=== PATIENT | male | born 1985 | race Caucasian/White ===

== ENCOUNTER 2016-10-31 21:19 | Emergency (ER) | payer OTHER ==
[2016-10-31] MEDS ORDERED: DOXYcycline CAP(*) 100 MG PO ONE (23:36)
[2016-10-31 23:59] VITALS: BP 124/69
--- NOTE | 2016-11-01 01:54 | ED ---
Skin Complaint - HPI Summary HPI Summary: Patient presents to ED with CC of tick head stuck in back. Tick has been present for up to 3 days he thinks. He denies any symptoms, pain, muscle aches or rash. He states he took the tick out today, but then the head stayed in and he was unable to dislodge it. He has never been dx with Lyme. - History of Current Complaint Chief Complaint: EDRashSkinAbscess Time Seen by Provider: 10/31/16 22:37 Stated Complaint: TICK BITE Hx Obtained From: Patient Onset/Duration: Started Days Ago Skin Exposure Onset/Duration: Hours Ago Timing: Constant Onset Severity: Mild Current Severity: Mild Pain Intensity: 0 Pain Scale Used: 0-10 Numeric Aggravating Symptom(s): Nothing Alleviating Symptom(s): Nothing Associated Signs & Symptoms: Negative Related History: Possible Reaction to: Insect - Allergy/Home Medications Allergies/Adverse Reactions: Allergies Allergy/AdvReac Type Severity Reaction Status Date / Time No Known Allergies Allergy Verified 07/07/13 13:29 PMH/Surg Hx/FS Hx/Imm Hx Previously Healthy: Yes - Immunization History Hx Pertussis Vaccination: No Immunizations Up to Date: No Infectious Disease History: No Infectious Disease History: Reports: Hx of Known/Suspected MRSA - abcess on face Denies: History Other Infectious Disease, Traveled Outside the [place] in Last 30 Days - Social History Occupation: Employed Full-time Lives: With Family Alcohol Use: Occasionally Hx Substance Use: No Substance Use Type: Reports: None Hx Tobacco Use: No Smoking Status (MU): Former Smoker Do You Chew or Dip Tobacco: No Have You Chewed or Dipped Tobacco in the LAST YEAR: No Review of Systems Constitutional: Negative Eyes: Negative Respiratory: Negative Gastrointestinal: Negative Genitourinary: Negative Musculoskeletal: Negative Positive: Other - small erythematous area over to the right of the back. Neurological: Negative Psychological: Normal All Other Systems Reviewed And Are Negative: Yes Physical Exam Triage Information Reviewed: Yes Vital Signs On Initial Exam: Initial Vitals Temp Pulse Resp BP Pulse Ox 98.4 F 85 18 156/73 99 10/31/16 21:35 10/31/16 21:35 10/31/16 21:35 10/31/16 21:35 10/31/16 21:35 Vital Signs Reviewed: Yes Appearance: Positive: Well-Appearing, Well-Nourished Skin: Positive: Warm, Skin Color Reflects Adequate Perfusion, Other - small erytehmatous area measuring .2 X .2 to the right side of the mid back without EM rash Head/Face: Positive: Normal Head/Face Inspection Eyes: Positive: SAADIA, Conjunctiva Clear Neck: Positive: Supple, Nontender Respiratory/Lung Sounds: Positive: Clear to Auscultation, Breath Sounds Present Cardiovascular: Positive: Normal Musculoskeletal: Positive: Normal, Strength/ROM Intact Neurological: Positive: Normal, Sensory/Motor Intact Psychiatric: Positive: Normal Diagnostics - Vital Signs Vital Signs Temp Pulse Resp BP Pulse Ox 10/31/16 23:55 98.8 F 74 18 124/69 10/31/16 23:00 97.8 F 89 18 128/89 96 10/31/16 21:35 98.4 F 85 18 156/73 99 - Laboratory Lab Statement: Any lab studies that have been ordered have been reviewed, and results considered in the medical decision making process. Course/Dx - Course Course Of Treatment: Used a 20 gauge needle to dislodge the head of tick in back. patient tolerated well. D/t unknown exposure, will send doxy to pharmacy of 200mg. (patient left - RN did not dispense rx doxy in ED) - Differential Diagnoses - Skin Complaint Differential Diagnoses: Allergic Reaction, Head Lice, Tick Born Illness - Diagnoses Provider Diagnoses: Tick bite Discharge - Discharge Plan Condition: Stable Disposition: HOME Patient Education Materials: Lyme Disease (ED), Tick Bite (ED) Referrals: Phil Vaz MD [Primary Care Provider] - Additional Instructions: Follow up with PCP. Images - Images Full Body (No Head): 1 - small lesion without EM
== END 2016-10-31 23:55 | disposition home or self-care (01) ==
LOC: ED 21:19
DX: S20.469A Insect bite (nonvenomous) of unspecified back wall of thorax, initial encounter (principal); W57.XXXA Bitten or stung by nonvenomous insect and other nonvenomous arthropods, initial encounter; Y93.9 Activity, unspecified; Y92.9 Unspecified place or not applicable; L53.8 Other specified erythematous conditions
CPT/HCPCS: 99282

== ENCOUNTER 2017-07-14 12:53 | Emergency (ER) | payer OTHER ==
[2017-07-14 13:05] VITALS: BP 163/80
--- NOTE | 2017-07-14 13:11 | UC ---
FLU HPI - HPI Summary HPI Summary: Sudden onset of fever chills body aches fatigue dizziness and cough began last night - History of Current Complaint Chief Complaint: UCGeneralIllness Stated Complaint: BODYACHES HEADACHE DIZZY Time Seen by Provider: 07/14/17 13:09 Hx Obtained From: Patient Onset/Duration: Sudden Onset, Lasting Days - 1, Still Present Severity Currently: Mild Severity Initially: Moderate Associated Signs & Symptoms: Positive: Fever, Myalgia, Sore Throat, Nasal Congestion, Headache - Allergy/Home Medications Allergies/Adverse Reactions: Allergies Allergy/AdvReac Type Severity Reaction Status Date / Time No Known Allergies Allergy Verified 07/14/17 13:05 PMH/Surg Hx/FS Hx/Imm Hx Previously Healthy: No GI/ History: Gastroesophageal Reflux - Surgical History Surgical History: None - Family History Known Family History: Positive: None - Social History Occupation: Employed Full-time Lives: With Family Alcohol Use: Occasionally Substance Use Type: None Smoking Status (MU): Former Smoker Review of Systems Constitutional: Chills, Fatigue Skin: Negative Eyes: Negative ENT: Sore Throat, Ear Ache, Nasal Discharge, Sinus Congestion Respiratory: Cough Cardiovascular: Negative Gastrointestinal: Negative Genitourinary: Negative Motor: Negative Neurovascular: Negative Musculoskeletal: Arthralgia, Myalgia Neurological: Headache Psychological: Negative Is Patient Immunocompromised?: No All Other Systems Reviewed And Are Negative: Yes Physical Exam Triage Information Reviewed: Yes Appearance: Well-Nourished, Ill-Appearing, Pain Distress Vital Signs: Initial Vital Signs Temp 98.8 F 07/14/17 12:59 Pulse 109 07/14/17 12:59 Resp 16 07/14/17 12:59 BP 163/80 07/14/17 12:59 Pulse Ox 98 07/14/17 12:59 Vital Signs Reviewed: Yes Eye Exam: Normal Eyes: Positive: Conjunctiva Clear ENT Exam: Normal ENT: Positive: Normal ENT inspection, Hearing grossly normal, Pharynx normal, TMs normal, Uvula midline. Negative: Nasal congestion, Nasal drainage, Tonsillar swelling, Tonsillar exudate, Trismus, Muffled voice, Hoarse voice, Dental tenderness Dental Exam: Normal Neck exam: Normal Neck: Positive: Supple, Nontender, No Lymphadenopathy Respiratory Exam: Normal Respiratory: Positive: Chest non-tender, Lungs clear, Normal breath sounds, No respiratory distress, No accessory muscle use Cardiovascular Exam: Normal Cardiovascular: Positive: RRR, No Murmur, Pulses Normal, Brisk Capillary Refill Musculoskeletal Exam: Normal Musculoskeletal: Positive: Strength Intact, ROM Intact, No Edema Neurological Exam: Normal Neurological: Positive: Alert, Muscle Tone Normal Psychological Exam: Normal Skin Exam: Normal Diagnostics - Laboratory Diagnostic Studies Completed/Ordered: Influenza B (+) Flu Course/Dx - Course Course Of Treatment: Tamiflu, increase fluids, follow with pcp, tylenol, ibuprofen - Differential Dx/Diagnosis Provider Diagnoses: Influenza B Discharge - Discharge Plan Condition: Stable Disposition: HOME Prescriptions: Oseltamivir CAP* [Tamiflu CAP*] 75 mg PO BID #10 cap Patient Education Materials: Influenza (ED), Hypertension (ED) Forms: *Work Release Referrals: [facility] [place] PHYSICIAN REFERRAL [Outside] - 1 Week
== END 2017-07-14 13:51 | disposition home or self-care (01) ==
LOC: UCEAST 12:53
DX: J10.1 Influenza due to other identified influenza virus with other respiratory manifestations (principal); K21.9 Gastro-esophageal reflux disease without esophagitis; Z87.891 Personal history of nicotine dependence
CPT/HCPCS: 87502; 99212; G0463

== ENCOUNTER 2019-02-28 17:28 | Emergency (ER) | payer BC, OTHER ==
--- NOTE | 2019-02-28 17:50 | UC ---
Cardiac HPI - HPI Summary HPI Summary: 33 yo male with onset of left axillary pain radiating down left arm to elbow since 8 or 9 am during the day the discomfort has been constant on occasion he has had palpitations one episode when he thought he would pass out a few episodes of diaphoresis anorexia no abd pain or heart burn or vomiting - History of Current Complaint Stated Complaint: CHEST PAIN Time Seen by Provider: 02/28/19 17:34 Hx Obtained From: Patient Onset/Duration: Gradual Onset, Lasting Hours Timing: Constant Initial Severity: Mild Current Severity: Mild Pain Intensity: 2 Chest Pain Location: Discrete at: - see HPI Character: Dull/Aching Aggravating Factor(s): Nothing Alleviating Factor(s): Nothing Associated Signs & Symptoms: Positive: Numbness - slight left arm, Dizziness, Diaphoresis, Palpitations. Negative: Weakness, SOB, Swelling, Syncope, Fever, Nausea/Vomiting, Cough, Hemoptysis, Back Pain, Abdominal Pain, Calf Pain/ Swelling - Allergy/Home Medications Allergies/Adverse Reactions: Allergies Allergy/AdvReac Type Severity Reaction Status Date / Time No Known Allergies Allergy Verified 02/28/19 17:44 Home Medications: Home Medications Ibuprofen TAB* [Motrin TAB* 400 MG] 400 mg PO Q6H PRN 02/28/19 [History Confirmed 02/28/19] Omeprazole (Nf) [Prilosec (NF)] 40 mg PO DAILY 02/28/19 [History Confirmed 02/28] PMH/Surg Hx/FS Hx/Imm Hx Previously Healthy: Yes - Surgical History Surgical History: None - Family History Known Family History: Positive: None, Other - patient note in touch often with his family and admits he little FHx - Social History Alcohol Use: Occasionally Substance Use Type: None Smoking Status (MU): Former Smoker Review of Systems All Other Systems Reviewed And Are Negative: Yes Constitutional: Positive: Negative Skin: Positive: Negative Eyes: Positive: Negative ENT: Positive: Negative Respiratory: Positive: Negative Cardiovascular: Positive: Palpitations Gastrointestinal: Positive: Negative Genitourinary: Positive: Negative Motor: Positive: Negative Neurovascular: Positive: Negative Musculoskeletal: Positive: Negative Neurological: Positive: Negative Psychological: Positive: Negative Physical Exam Triage Information Reviewed: Yes Appearance: Well-Appearing, No Pain Distress, Well-Nourished Vital Signs Reviewed: Yes Eyes: Positive: Conjunctiva Clear ENT: Positive: Hearing grossly normal. Negative: Nasal congestion, Nasal drainage, Tonsillar swelling, Tonsillar exudate, Trismus, Muffled voice, Hoarse voice, Uvula midline Dental Exam: Normal Neck: Positive: Supple, Nontender, No Lymphadenopathy Respiratory: Positive: Lungs clear, Normal breath sounds, No respiratory distress, No accessory muscle use Cardiovascular: Positive: RRR, No Murmur Abdomen Description: Positive: Nontender, No Organomegaly, Soft. Negative: CVA Tenderness (R), CVA Tenderness (L) Bowel Sounds: Positive: Present Musculoskeletal: Positive: ROM Intact, No Edema Neurological: Positive: Alert Psychological Exam: Normal Skin Exam: Normal Images Front/Back of Body, Lg ([place]): 1 - slightly tender here Diagnostics - EKG Cardiac Rate: NL Cardiac Rhythm: Sinus: Normal Ectopy: None ST Segment: Normal - Assessment/Plan Course Of Treatment: Due to patients symptoms I suggested we transfer him to [facility] for further investigation of his symptoms He declined stating his family has issues with [facility] He desires his to drive him [facility] I explained to him that despite his unremarkable EKG that his symptoms may reflect heart problems including a heart attack His delay in seeking a higher level of care could potentially lead to or disability if the cause of his symptoms are cardiac He declines AMA form signed Repeat VS better second EKG remains normal - Clinical Impression Provider Diagnosis: Diaphoresis, Near syncope, Palpitations, Left arm pain Discharge ED - Sign-Out/Discharge Documenting (check all that apply): Patient Departure All imaging exams completed and their final reports reviewed: No Studies - Discharge Plan Condition: Stable Disposition: HOME Patient Education Materials: Heart Palpitations (ED), Dizziness (ED) Referrals: No Primary Care Phys,NOPCP [Primary Care Provider] - Additional Instructions: both EKGs done here were normal I suggest this get worked up in the emergency room Despite the normal EKGs your symptoms may have a serious cause We are not able to adequately evaluate you here If you change your mind you can go directly from here to the [facility] You were given 4 baby aspirin here - Billing Disposition and Condition Condition: STABLE Disposition: Home
[2019-02-28] MEDS ORDERED: Aspirin 81 mg CHEW TAB* 81 MG TAB.CHEW PO ONE (18:25)
[2019-02-28 18:29] VITALS: BP 133/82
== END 2019-02-28 19:15 | disposition home or self-care (01) ==
LOC: UCEAST 17:28
DX: R61 Generalized hyperhidrosis (principal); R55 Syncope and collapse; R00.2 Palpitations; M79.622 Pain in left upper arm; Z87.891 Personal history of nicotine dependence
CPT/HCPCS: 93005; 99212; A9270-GY; G0463